=== PATIENT | female | born 1950 | race Caucasian/White ===

== ENCOUNTER 2019-10-21 11:21 | Emergency (ER) | payer MEDICARE, BC ==
--- NOTE | 2019-10-21 11:53 | RAD ---
RIGHT SHOULDER TWO VIEWS: HISTORY: Right shoulder pain. FINDINGS: There is anterior dislocation at the glenohumeral joint. POS: OFF
[2019-10-21] MEDS ORDERED: Fentanyl 100 MCG/2 ML VIAL ONE (11:58)
[2019-10-21] MEDS ORDERED: Lorazepam 2 MG/ML VIAL ONE (11:58)
[2019-10-21] MEDS ORDERED: Ondansetron PF 4 MG/2 ML Vial ONE (11:58)
[2019-10-21] MEDS ORDERED: Ketorolac Tromethamine 30 MG/ML VIAL ONE (12:01)
[2019-10-21] MEDS ORDERED: Ketamine 50 MG/ML (10ML VIAL) ONE (12:47)
--- NOTE | 2019-10-21 13:54 | RAD ---
RIGHT SHOULDER TWO VIEWS: 10/21/19 HISTORY: Right shoulder dislocation, reduction. FINDINGS: Interval reduction of the anterior dislocation noted at 11:03 a.m. is seen. Anatomic alignment has be en restored. POS: OFF
== END 2019-10-21 13:52 | disposition home or self-care (01) ==
LOC: ERS 11:21
DX: S43.014A Anterior dislocation of right humerus, initial encounter (principal); X50.1XXA Overexertion from prolonged static or awkward postures, initial encounter
CPT/HCPCS: 23650; 93005; 94760; 96374; 96375; 99152; 99153; J1885; J2060; J2405; J3010

== ENCOUNTER 2019-11-06 10:42 | Outpatient (CLI) | payer MEDICARE, BC ==
--- NOTE | 2019-11-06 12:04 | MRI ---
EXAM: MRI right shoulder PROVIDED CLINICAL HISTORY: Pain COMPARISON: None FINDINGS: Full thickness, full width retracted tearing of the supraspinatus and infraspinatus tendons demonstra dusty with retraction to about the level of the glenohumeral joint. There is at least high-grade partial-thickness tearing involving the undersurface fibers of the subscapularis involving the majori ty of the width of the tendon. Teres minor appears intact. Intact long head biceps tendon fibers are not identified. No focal full-thickness glenohumeral articu lar cartilage defect is apparent. No evidence for displaced labral tear. There is a mild-moderate glenohumeral joint effusion. Acromioclavicular joint osteoarthrosis is demonstrated without significant mass effect upon the subja cent supraspinatus. Rotator cuff muscular volume appears preserved. No focal concerning regional marrow signal abnormality apparent. There is increased signal intensity on fluid sensitive sequences involving the supraspinatus, infraspinatus, subscapularis and teres minor muscles in a patchy manner. IMPRESSION: 1. Massive rotator cuff tear as described. 2. Muscular signal alteration may reflect low-grade muscular strain or denervation. 3. Intact long head biceps tendon fibers are not identified.
== END 2019-11-06 10:43 | disposition home or self-care (01) ==
LOC: MRI 10:42
PROVIDERS: ATTEND Orthopaedic Surgery
DX: S43.004A Unspecified dislocation of right shoulder joint, initial encounter (principal); M75.121 Complete rotator cuff tear or rupture of right shoulder, not specified as traumatic

== ENCOUNTER 2019-11-20 06:32 | Outpatient (CLI) | payer MEDICARE, BC, OTHER ==
[2019-11-20 14:06] LABS: Anion Gap 16 mmol/L (10-20); BUN (Urea Nitrogen) 17 mg/dL (9.8-20.1); Calc. Creatinine Clearance 0 mL/min (70-130); Calcium 9.8 mg/dL (7.8-10.44); Carbon Dioxide 25 mmol/L (23-31); Chloride 102 mmol/L (98-107); Estimated GFR-MDRD 68; Glucose 110 mg/dL (83-110); Potassium 4.2 mmol/L (3.5-5.1); Sodium 139 mmol/L (136-145)
[2019-11-21 12:18] LABS: SARS-CoV-2 MS2 Positive; SARS-CoV-2 N Gene Negative; SARS-CoV-2 S Gene Negative; SARS-CoV-2 orf1ab Negative
--- NOTE | 2019-11-22 18:01 | EKG ---
Test Reason : Blood Pressure : / mmHG Vent. Rate : 089 BPM Atrial Rate : 089 BPM P-R Int : 140 ms QRS Dur : 078 ms QT Int : 352 ms P-R-T Axes : 046 024 030 degrees QTc Int : 428 ms Normal sinus rhythm Possible Left atrial enlargement Borderline ECG When compared with ECG of 21-OCT-2019 11:43, No significant change was found Confirmed by MICHAEL GRANT (2) on 11/22/2019 6:00:34 PM Referred By: DANA Confirmed By:MICHAEL GRANT
== END 2019-11-20 06:33 | disposition home or self-care (01) ==
LOC: LABBT 06:32
PROVIDERS: ATTEND Orthopaedic Surgery
DX: Z01.812 Encounter for preprocedural laboratory examination (principal); Z11.59 Encounter for screening for other viral diseases; S46.012A Strain of muscle(s) and tendon(s) of the rotator cuff of left shoulder, initial encounter
CPT/HCPCS: 80048; U0003; 87635; 93005; 93010

== ENCOUNTER 2019-11-23 05:55 | Day surgery (SDC) | payer MEDICARE, BC ==
[2019-11-17 11:22] VITALS: BMI 24.5
[2019-11-23] MEDS ORDERED: Midazolam HCl 2 mg/2 ml Vial ONE (06:39)
[2019-11-23] MEDS ORDERED: Fentanyl 100 MCG/2 ML VIAL ONE ×2 (06:39→07:15)
[2019-11-23] MEDS ORDERED: Ropivacaine 0.2% 550 ML 550 ML NERVE BLCK SCH (06:48)
[2019-11-23] MEDS ORDERED: Zolpidem Tartrate 5 MG TAB PO PRN (06:48)
[2019-11-23] MEDS ORDERED: Fentanyl 100 MCG/2 ML VIAL IV PRN (06:48)
[2019-11-23] MEDS ORDERED: traMADol HCl 50 MG TAB PO PRN ×2 (06:48)
[2019-11-23] MEDS ORDERED: HYDROcodone/Acetaminophen 10/325 mg Tablet PO PRN ×2 (06:48)
[2019-11-23] MEDS ORDERED: Promethazine HCl 25 MG/ML VIAL IM PRN (06:48)
[2019-11-23] MEDS ORDERED: Ondansetron PF 4 MG/2 ML Vial IVP PRN (06:48)
[2019-11-23] MEDS ORDERED: Famotidine/PF 20 mg/2ml Vial ONE (07:15)
[2019-11-23] MEDS ORDERED: Ropivacaine 0.2% HCl/PF (40 MG/20 ML VIAL) EPIDURAL SCH (08:45)
[2019-11-23] MEDS ORDERED: Ropivacaine 0.5% HCl/PF (150 MG/30 ML VIAL) IM SCH (08:45)
--- NOTE | 2019-11-23 09:54 | OP ---
DATE OF PROCEDURE: 11/23/2019 This is Gerald Serrano PA-C dictating a report for Ranjit Li MD. PREOPERATIVE DIAGNOSES: 1. Right shoulder retracted rotator cuff tear, subacute to chronic. 2. Acromial spurring with subacromial impingement. 3. Biceps chronic instability. POSTOPERATIVE DIAGNOSES: 1. Right shoulder retracted rotator cuff tear, subacute to chronic. 2. Acromial spurring with subacromial impingement. 3. Biceps chronic instability. PROCEDURE PERFORMED: Open acromioplasty and primary repair, double row technique of supraspinatus, infraspinatus, rotator cuff tendons. 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 COMPONENTS USED: Arthrex 5.5 suture anchor double-armed x3 with Bio[employer]posite SwiveLock self-punching suture anchor x2. ESTIMATED BLOOD LOSS: Less than 50. FINDINGS: Large retracted front rear supraspinatus infraspinatus tendon ruptures chronic in nature with retraction and acromial spurring and biceps auto tenolysis and changes consistent with early degenerative arthritis. DRAINS: None. SPECIMENS: None. COMPLICATIONS: None. COUNTS: Correct. INDICATION FOR SURGERY: Mariely is a 69-year-old female who has had right shoulder pain for greater than 6 months. She has failed conservative management to include physical therapy and has elected to proceed with open right rotator cuff primary repair after obtaining an MRI of the shoulder, which demonstrated retracted tear. DESCRIPTION OF PROCEDURE: After informed consent was obtained in the preoperative holding area, the patient was taken to the operative suite where general anesthesia was induced and endotracheal tube was placed and secured. Once adequate anesthesia was obtained, the patient was positioned in the semi-recumbent position with a bolster under the right scapula. The right upper extremity was then prepped and draped in usual sterile fashion. Prior to incision, a time-out was called and all members of the surgical team agreed upon site, surgeon, and patient. Once this was completed, we made a typical lateral incision directly over the acromion extending approximately 3 fingerbreadths past the lateral aspect of the acromion. Local bleeding was controlled with Bovie electrocautery. We undermined down to the acromion itself and used an intrafascial deltoid split from the anterior and middle deltoid. This was then developed deeper and we encountered the bursa. This was incised. We encountered copious serous fluid consistent with joint fluid. A complete subtotal bursectomy was performed and an acromioplasty was then performed using the osteotome and rongeur. The rotator cuff was then identified. This lateral margin was grasped with Allis and we placed 3 retention sutures and we were able to digitally reflect and release the retracted tear to a full completion over the lateral margin up to the greater tuberosity anteriorly and posteriorly. We had excellent coverage in the arm at side position. We then used a rongeur to develop the remnant cuff and remove all this down to bleeding bone with a curettage and rongeur. Happy with our bone bed, we then freshened up the cuff lateral margin both anteriorly and posteriorly. We then placed 3 suture anchors, passed all stitches in a Ludin-Gómez front to back process. These were over tied over the top creating a tissue bridge and a nice big footprint extending from the cartilaginous edge out to greater tuberosity and anterior to posterior strip. A double row technique was then used and malleted down into place x2 laterally, completing our nice footprint. We had near anatomic reduction. The biceps was never identified as we therefore did not address it surgically. Primary closure was accomplished with 0 Vicryl in the deltoid to the acromion. This was repaired nicely. The deltoid itself was then closed with 0 Vicryl down through the split. Subcutaneous layer was closed with interrupted Vicryl stitches and the subcuticular layer was closed with interrupted 2-0 Vicryl stitches. Stainless steel nahun were used to reapproximate the skin. Sterile dressing was applied. Procedure was terminated without any complications. The patient was extubated in the operative suite and taken to recovery room in stable condition. A sling was placed. She will return to clinic in 2 weeks for staple removal. Job ID: [id number]
[2019-11-23] MEDS ORDERED: Lidocaine 1% PF 5 ML VIAL ONE (10:03)
[2019-11-23] MEDS ORDERED: Glycopyrrolate 0.2 MG/ML 5 ML SYRINGE ONE (10:03)
[2019-11-23] MEDS ORDERED: PROPOFOL 200 MG/20 ML VIAL ONE (10:03)
[2019-11-23] MEDS ORDERED: Rocuronium Bromide 10 MG/ML (10ML VIAL) ONE (10:03)
[2019-11-23] MEDS ORDERED: Ropivacaine 0.5% HCl/PF (150 MG/30 ML VIAL) ONE (10:03)
[2019-11-23] MEDS ORDERED: Ondansetron PF 4 MG/2 ML Vial ONE (10:03)
[2019-11-23] MEDS ORDERED: Dexamethasone 20 MG/5 ML VIAL ONE (10:03)
[2019-11-23] MEDS ORDERED: Ropivacaine 0.2% HCl/PF (40 MG/20 ML VIAL) ONE (10:03)
[2019-11-23] MEDS ORDERED: Promethazine HCl 25 MG/ML VIAL ONE (10:38)
[2019-11-23] MEDS ORDERED: Sodium Chloride 0.9% 10 ML ONE (10:38)
[2019-11-23] MEDS ORDERED: Ketorolac Tromethamine 30 MG/ML VIAL IVP SCH (12:00)
== END 2019-11-23 12:35 | disposition home or self-care (01) ==
LOC: SDC 05:55
PROVIDERS: ATTEND Orthopaedic Surgery
PROC: 0LQ10ZZ Repair Right Shoulder Tendon, Open Approach (ICD-10-PCS; principal; 2019-11-23)
PROC: 0MN10ZZ Release Right Shoulder Bursa and Ligament, Open Approach (ICD-10-PCS; 2019-11-23)
DX: S46.011A Strain of muscle(s) and tendon(s) of the rotator cuff of right shoulder, initial encounter (principal); M25.811 Other specified joint disorders, right shoulder; Z79.899 Other long term (current) drug therapy
CPT/HCPCS: 23410; 97139; 98960; A4306; C1713; J0690; J1100; J2001; J2250; J2405; J2550; J2704; J2795; J3010; S0028